=== PATIENT | male | born 1975 | race Asian ===

== ENCOUNTER 2024-11-16 08:53 | Inpatient (IN) ==
--- NOTE | 2024-11-16 09:27 | Emergency Department Note ---
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 The patient had testing done because he is not been feeling well. The patient denies having any abdominal pain nausea or vomiting. The patient denies having any fevers or recent traveling. [place] . He has no history of IV drug abuse. ROS: See above HPI for pertinent positives & negatives. A total of 10 systems reviewed and were otherwise negative. PAST MEDICAL HISTORY: See Below PAST SURGICAL HISTORY: See Below FAMILY HISTORY: See Below SOCIAL HISTORY: See Below HOME MEDICATIONS: See Below ALLERGIES: See Below VITALS: See Below PHYSICAL EXAMINATION: GENERAL: Patient is awake alert in no acute distress patient is resting comfortably and showing no signs of anxiety EYES: The conjunctivae are icteric. The pupils are round and reactive. EARS, NOSE, MOUTH AND THROAT: The nose is without any evidence of any deformity. NECK: The neck is nontender and supple. RESPIRATORY: Normal respiratory effort is noted there is no evidence of wheezing rhonchi or rales CARDIOVASCULAR: Regular rate and rhythm noted there no murmurs rubs or gallops normal S1 normal S2. GASTROINTESTINAL: The abdomen is soft. Abdomen is nontender. MUSCULOSKELETAL/EXTREMITIES: There is no evidence of gross deformity full range of motion is noted in the hips and shoulders. SKIN: There is no obvious evidence of any rash. There are no petechiae, pallor or cyanosis noted. NEUROLOGIC: Patient is awake alert and oriented x3 strength is symmetric patellar reflexes are 2+ bilaterally MEDICAL DECISION MAKING: The patient is a 49-year-old male who presented to the emergency department from the [facility]. The patient was noted to be jaundiced and had laboratory studies done. He was found to have acute hepatitis but his LFTs were very elevated. He also had an elevated bilirubin. There is concerned that he might start to go into worsening liver failure. The patient was sent to the emergency department for further evaluation. I discussed the patient's laboratory and radiographic studies with him. I discussed his condition with the on-call [facility] hospitalist as well as the on-call GI team. At this time they recommend inpatient management to determine further treatment. Triage Nursing notes reviewed. Prior medical records reviewed Vital Signs: reviewed and remarkable for no significant abnormalities Differential diagnosis: Etiologies such as appendicitis, diverticulitis, obstruction, inflammatory bowel disease, renal colic, PUD, biliary pathology, pancreatitis, mesenteric ischemia, aortic pathology, infections, genitourinary, UTI, perforated viscus, as well as others were entertained. ER treatment provided: See below Diagnostics interpreted by me: ECG: EKG was obtained in the emergency department. My interpretation is sinus bradycardia at 51 bpm. There is no ectopy. There is no acute ST segment abnormalities noted. QTc was 403 ms. Cardiac Monitoring: An order was placed for continuous cardiac monitoring. The monitor shows a rate of 53 bpm with sinus rhythm. Laboratory studies: As stated above and show below. Imaging studies: See below. Radiographic imaging was reviewed by myself Consultation(s): I discussed this case with Dr. Tong who is on for gastroenterology. I discussed this case with Dr. [facility] Past Med/Surg History Problem List (Updated 11/16/24 @ 14:52 by Roly Ceron DO) Hyperbilirubinemia (Acute) Abnormal LFTs (Acute) Hepatitis B (Acute) Acute liver disease Social History Smoking Status: Never smoker Hx Alcohol Use: No Hx Substance Use: No Preferred Language: [employer] Required: No Beliefs That Will Affect Care: None Current Living Situation: Other Other Information That Helps Us Care for You: No Feels Safe at Home: Yes Safety Concerns: Feels Safe At This Time Assistive Devices: None Allergies Allergies Allergy/AdvReac Type Severity Reaction Status Date / Time No Known Allergies Allergy Unverified 11/16/24 12:37 Results & Data (ED) Vital Signs Vital Signs - 24 hr 11/16/24 09:02 11/16/24 09:16 11/16/24 09:26 Temperature 36.7 C Temperature Source Temporal Artery Scan Pulse Rate 54 L 63 Pulse Rate [Apical] 61 Pulse Rhythm Respiratory Rate 18 18 Respiratory Effort / Characteristics Non-Labored Spontaneous Non-Labored Spontaneous Respiratory Depth Normal Normal Respiratory Pattern Regular Regular Blood Pressure 108/68 Blood Pressure [Right Arm] 116/72 Blood Pressure Mean 81 Blood Pressure Mean [Right Arm] 86 Blood Pressure Position [Right Arm] Semi-fowlers Pulse Oximetry 97 97 Oxygen Delivery Method Room Air Room Air Sepsis Recent Fever Within 48 Hours No Sepsis New/Unexplained Change in Mental Status N/A Sepsis Action Taken by Nursing No Action Required 11/16/24 09:30 11/16/24 10:29 Temperature Temperature Source Pulse Rate 57 L Pulse Rate [Apical] 53 L Pulse Rhythm Regular Respiratory Rate 18 17 Respiratory Effort / Characteristics Non-Labored Spontaneous Respiratory Depth Normal Respiratory Pattern Blood Pressure Blood Pressure [Right Arm] 115/84 Blood Pressure Mean Blood Pressure Mean [Right Arm] 94 Blood Pressure Position [Right Arm] Lying Pulse Oximetry 98 98 Oxygen Delivery Method Room Air Room Air Sepsis Recent Fever Within 48 Hours Sepsis New/Unexplained Change in Mental Status Sepsis Action Taken by Correction Medications Current Medication List: was personally reviewed by me Laboratory Data Attestation: I reviewed the patient's lab results. 11/16/24 08:59 11/16/24 08:59 Lab Results 11/16/24 11/16/24 11/16/24 Range/Units 08:59 09:01 09:17 WBC 3.30 L (4.8-10.8) K/ul RBC 4.40 L (4.70-6.10) M/uL Hgb 13.4 L (14.0-18.0) g/dl Hct 41.5 L (42.0-52.0) % MCV 94.3 (80.0-100.0) fL MCH 30.5 (25.0-34.0) pg MCHC 32.3 (32.0-36.0) g/dL RDW Std Deviation 56.0 H (36.4-46.3) fL RDW Coeff of Misha 16.0 H (11.5-14.5) % Plt Count 122 L (130-400) K/uL MPV 10.7 (9.4-12.4) fL Immature Gran % (Auto) 0.3 % Neut % (Auto) 52.7 % Lymph % (Auto) 35.8 % Otero % (Auto) 9.4 % Eos % (Auto) 1.2 % Baso % (Auto) 0.6 % Neut # (Auto) 1.74 (1.40-6.50) K/uL Lymph # (Auto) 1.18 L (1.20-3.40) K/uL Otero # (Auto) 0.31 (0.11-0.59) K/uL Eos # (Auto) 0.04 (0.00-0.50) K/uL Baso # (Auto) 0.02 (0.00-0.20) K/uL Immature Gran # (Auto) 0.01 (0.01-0.20) K/uL PT 11.6 (9.0-12.0) Seconds INR 1.1 (0.9-1.1) APTT 29 (21-31) Seconds PTT Ratio 1.1 Sodium 138 (136-145) mmol/L Potassium 3.8 (3.5-5.1) mmol/L Chloride 104 (98-107) mmol/L Carbon Dioxide 29 (21-32) mmol/L Anion Gap 5 (3-11) BUN 12 (6-23) mg/dl Creatinine 0.88 (0.6-1.4) mg/dl Est Cr Clr Drug Dosing 106.0 ml/min eGFR 106.07 BUN/Creatinine Ratio 13.6 (10-20) Glucose 131 H (70-99(Fasting)) mg/dl Calcium 9.2 (8.6-10.3) mg/dl Total Bilirubin 3.5 H (0.2-1.0) mg/dl Direct Bilirubin 1.8 H (0-0.2) mg/dl AST 497 H (13-39) U/L ALT 1103 H (7-52) U/L Alkaline Phosphatase 86 (34-104) U/L Troponin I High Sens 2.7 (0-20) pg/ml Total Protein 7.2 (6.0-8.3) gm/dl Albumin 4.1 (3.4-5.0) gm/dl Globulin 3.1 (2.5-4.0) gm/dl Albumin/Globulin Ratio 1.3 (0.9-2) Lipase 16 (11-82) U/L Urine Color Urine Appearance (Clear) Urine pH (4.5-7.5) Ur Specific Longs (1.000-1.030) Urine Protein (Negative) Urine Glucose (UA) (Negative) Urine Ketones (Negative) Urine Blood (Negative) Urine Nitrite (Negative) Urine Bilirubin (Negative) Urine Urobilinogen (Negative) Ur Leukocyte Esterase (Negative) Urine Comment Acetaminophen < 3 L (10-30) ug/ml EBV Capsid Ag IgG Ab Positive EBV Caps Ag IgG Sig Str 119.0 (< 18.0) U/mL EBV Capsid Ag IgM Ab Negative EBV Caps Ag IgM Sig Str < 10.0 (< 36.0) U/mL EBV Early Antigen IgG Negative (Negative) EBV EA Signal Strength < 5.0 (< 9.0) U/mL EBV Nuclear Antigen Ab Positive EBV Nucl Ag IgG Sig Str 119.0 (< 18.0) U/mL EBV Interpretation See Comment Hep Bs Antigen Prelim Positive A (Negative) Hep Bs Antibody Non-Immune Hep Bs Antibody, Quant < 3.00 (>or=10mIU/mL Immune) mIU/mL Hepatitis C Antibody Negative (Negative) 11/16/24 Range/Units 10:27 WBC (4.8-10.8) K/ul RBC (4.70-6.10) M/uL Hgb (14.0-18.0) g/dl Hct (42.0-52.0) % MCV (80.0-100.0) fL MCH (25.0-34.0) pg MCHC (32.0-36.0) g/dL RDW Std Deviation (36.4-46.3) fL RDW Coeff of Misha (11.5-14.5) % Plt Count (130-400) K/uL MPV (9.4-12.4) fL Immature Gran % (Auto) % Neut % (Auto) % Lymph % (Auto) % Otero % (Auto) % Eos % (Auto) % Baso % (Auto) % Neut # (Auto) (1.40-6.50) K/uL Lymph # (Auto) (1.20-3.40) K/uL Otero # (Auto) (0.11-0.59) K/uL Eos # (Auto) (0.00-0.50) K/uL Baso # (Auto) (0.00-0.20) K/uL Immature Gran # (Auto) (0.01-0.20) K/uL PT (9.0-12.0) Seconds INR (0.9-1.1) APTT (21-31) Seconds PTT Ratio Sodium (136-145) mmol/L Potassium (3.5-5.1) mmol/L Chloride (98-107) mmol/L Carbon Dioxide (21-32) mmol/L Anion Gap (3-11) BUN (6-23) mg/dl Creatinine (0.6-1.4) mg/dl Est Cr Clr Drug Dosing ml/min eGFR BUN/Creatinine Ratio (10-20) Glucose (70-99(Fasting)) mg/dl Calcium (8.6-10.3) mg/dl Total Bilirubin (0.2-1.0) mg/dl Direct Bilirubin (0-0.2) mg/dl AST (13-39) U/L ALT (7-52) U/L Alkaline Phosphatase (34-104) U/L Troponin I High Sens (0-20) pg/ml Total Protein (6.0-8.3) gm/dl Albumin (3.4-5.0) gm/dl Globulin (2.5-4.0) gm/dl Albumin/Globulin Ratio (0.9-2) Lipase (11-82) U/L Urine Color Dark Yellow Urine Appearance Clear (Clear) Urine pH 6.5 (4.5-7.5) Ur Specific Longs 1.011 (1.000-1.030) Urine Protein Negative (Negative) Urine Glucose (UA) Negative (Negative) Urine Ketones Negative (Negative) Urine Blood Negative (Negative) Urine Nitrite Negative (Negative) Urine Bilirubin 1+ H (Negative) Urine Urobilinogen Negative (Negative) Ur Leukocyte Esterase Negative (Negative) Urine Comment Acetaminophen (10-30) ug/ml EBV Capsid Ag IgG Ab EBV Caps Ag IgG Sig Str (< 18.0) U/mL EBV Capsid Ag IgM Ab EBV Caps Ag IgM Sig Str (< 36.0) U/mL EBV Early Antigen IgG (Negative) EBV EA Signal Strength (< 9.0) U/mL EBV Nuclear Antigen Ab EBV Nucl Ag IgG Sig Str (< 18.0) U/mL EBV Interpretation Hep Bs Antigen (Negative) Hep Bs Antibody Hep Bs Antibody, Quant (>or=10mIU/mL Immune) mIU/mL Hepatitis C Antibody (Negative) Imaging Data Attestation: I personally reviewed and interpreted this imaging study as follows: My Impression: Ultrasound of the right upper quadrant was obtained. My interpretation is no free fluid noted, final report below. Radiologist's Impression: Abdomen Ultrasound 11/16/24 08:59 ULTRASOUND RIGHT UPPER QUADRANT ABDOMEN CLINICAL HISTORY: Hepatitis B positive. COMPARISON STUDY: No priors TECHNIQUE: Real-time, grayscale, and color flow sonography of the right upper quadrant of the abdomen was performed. Images are reviewed in the transverse and longitudinal planes. FINDINGS: Liver: The liver is normal in size and echotexture. There is no intrahepatic biliary ductal dilatation. The main portal vein is patent. There is no sonographic evidence of hepatic mass lesion. Gallbladder: The gallbladder is partially contracted and normal as imaged. No gallstones are identified. There is no gallbladder wall thickening or pericholecystic fluid. A sonographic Novoa's sign is reportedly absent. The common bile duct measures up to 0.3 cm in diameter. Pancreas: Visualized portions of the pancreatic head and body are normal in appearance. Right kidney: Survey images of the right kidney demonstrate normal size and echotexture. There is no hydronephrosis. Ascites: None. IMPRESSION: 1. Normal sonographic appearance of the liver. 2. No gallstones are seen. ACT 112: Negative or not required by law. Electronically signed by: James Kennedy M.D. 11/16/2024 12:56 PM Chest X-Ray 11/16/24 08:59 SINGLE VIEW CHEST CLINICAL HISTORY: Generalized abdominal pain. FINDINGS: An AP, portable, upright chest radiograph is obtained. No prior studies are available for comparison at the time of dictation. The cardiomediastinal silhouette is unremarkable. The lungs and pleural spaces are clear. No pneumothorax is seen. The bony thorax is grossly intact. IMPRESSION: No active disease in the chest. ACT 112: Negative or not required by law. Electronically signed by: James Kennedy M.D. 11/16/2024 9:31 AM Discharge Plan Visit Data Chief Complaint: Referred by Doctor Stated Complaint: ABNORMAL BLOOD WORK ED Provider: Roly Ceron Discharge Problem: Hepatitis B, Abnormal LFTs, Hyperbilirubinemia Patient Disposition: Admitted As Inpatient Condition: Fair Discharge Instructions Interventions: ED Discharge Assessment Last Done: 11/16/24 11:52
--- NOTE | 2024-11-16 09:32 | XRay Report ---
SINGLE VIEW CHEST CLINICAL HISTORY: Generalized abdominal pain. FINDINGS: An AP, portable, upright chest radiograph is obtained. No prior studies are available for c omparison at the time of dictation. The cardiomediastinal silhouette is unremarkable. The lungs and p leural spaces are clear. No pneumothorax is seen. The bony thorax is grossly intact. IMPRESSION: No active disease in the chest. ACT 112: Negative or not required by law. Electronically signed by: James Kennedy M.D. 11/16/2024 9:31 AM
[2024-11-16 09:45] LABS: Hematocrit (blood only) 41.5 % (42.0-52.0); Hemoglobin 13.4 g/dl (14.0-18.0); Immature Granulocytes # (auto) 0.01 K/uL (0.01-0.20); Immature Granulocytes % (auto) 0.3 %; Mean Corpuscular Hemoglobin 30.5 pg (25.0-34.0); Mean Corpuscular Volume 94.3 fL (80.0-100.0); Platelet Count 122 K/uL (130-400); RDW Standard Deviation 56.0 fL (36.4-46.3); Red Blood Count 4.40 M/uL (4.70-6.10); White Blood Count 3.30 K/ul (4.8-10.8)
[2024-11-16 10:01] LABS: Anion Gap 5.0 (3-11); Blood Urea Nitrogen 12.0 mg/dl (6-23); Calcium 9.2 mg/dl (8.6-10.3); Carbon Dioxide 29.0 mmol/L (21-32); Chloride 104.0 mmol/L (98-107); Creatinine Clr Calc Pharmacy 106.0 ml/min; Glucose 131.0 mg/dl (70-99(Fasting)); Potassium 3.8 mmol/L (3.5-5.1); Sodium 138.0 mmol/L (136-145)
[2024-11-16 10:10] LABS: INR 1.1 (0.9-1.1); Partial Thromboplastin Time 29 Seconds (21-31); Prothrombin Time 11.6 Seconds (9.0-12.0)
[2024-11-16 10:22] LABS: Alanine Aminotransferase 1103.0 U/L (7-52); Albumin Globulin Ratio 1.3 (0.9-2); Alkaline Phosphatase 86.0 U/L (34-104); Bilirubin,Total 3.5 mg/dl (0.2-1.0); Globulin 3.1 gm/dl (2.5-4.0); Lipase 16.0 U/L (11-82); Total Protein 7.2 gm/dl (6.0-8.3)
[2024-11-16 10:49] LABS: Appearance Urine Clear (Clear); Glucose Urine UA Negative (Negative)
[2024-11-16 10:56] LABS: Hep C Ab Rflx HepCQuant RNA Negative (Negative)
--- NOTE | 2024-11-16 11:03 | History & Physical Report ---
Date of Service November 16, 2024 Assessment & Plan (1) Acute liver disease: Plan 49 yo male with unknown pmhx who presents from [facility] ([facility]) for abnormal labs 2/2 likely acute hepatitis vs. acute on chronic hepatitis. #Acute vs. Acute on Chronic Liver Disease #Pancytopenia -positive HbsAg, other serologies incoming, does appear to be acute Hepatitis B -negative HbsAb suggestive of no chronic immunity -Hep C negative -pancytopenia suggests potential chronic component to liver disease -other etiologies less likely, differential includes Hepatitis A/E, drug induced liver injury (unlikely given no medications), autoimmune hepatitis (possible), obstructive liver disease (less likely given asymtpomatic), Wilsons disease (possible), less likely tylenol toxicity (given negative), acute Budd Chiari Plan: -GI consult, appreciate recs (order placed) -f/u hepatitis panel -f/u GGT -check autoimmune panel -check hepatitis C viral load, add on hepatitis E labs -check BRONSON, ceruloplasmin, antismooth muscle antibody, copper levels I spent a total of 80 minutes in direct patient care, including [id number] time with the patient and/or family, reviewing medical records, ordering and reviewing diagnostic tests, and coordinating care with other healthcare providers. This time includes: history taking, physical examination, medical decision making, counseling, ECG interpretation, imaging interpretation, lab interpretation, orders, and education, excluding time spent in the performance of separately billed services. History of Present Illness Chief Complaint: -abnormal labs Primary Care Provider: [facility] 49 yo male with unknown pmhx who presents from [facility] ([facility]) for abnormal labs. No medical history or admissions for this patient in medical records. Patient gave permission to discuss case with officers in room, 2 officers in room during conversation. Patient seen and examined at bedside. Patient doing well today. He states he has no symptoms at this time, no nausea, vomiting, diarrhea, SOB, chest pain, RUQ pain. He states he occasionally has had chest pain but not currently. He states he is unsure if his family members had hepatitis B. He states he does not feel any differently than he did prior. Denies IV drug use, no drug use, no alcohol use, no tobacco use, full code. Allergies Allergy/AdvReac Type Severity Reaction Status Date / Time No Known Allergies Allergy Unverified 11/16/24 12:37 Past Med/Surg History Problem List (Updated 11/16/24 @ 12:16 by Virgilio Mg MD) Acute liver disease Social History Smoking Status: Never smoker Preferred Language: Uzbek Review of Systems Review of Systems: -negative unless listed above Physical Exam Physical Exam: Gen: A&O 3 NAD HEENT: NCAT, EOMI, not icteric. External ears normal. No rhinorrhea. Moist mucous membranes. Neck: Supple, full range of motion, no observable masses, No meningeal sign. Lungs: No Respiratory distress. CV: RRR, no edema. Abdomen: Soft, nondistended, No rebound tenderness. MSK: No joint swelling, no redness. Skin: No rashes, petechiae, lesions. Normal color per patient. Neuro: Normal Gait, Grossly intact. Psych: Appropriate for situation. Results & Data Results & Data Vital Signs (Past 12 Hours) Vital Signs Temp Pulse Pulse Resp BP BP Pulse Ox 11/16/24 10:29 53 L 17 115/84 98 11/16/24 09:30 57 L 18 98 11/16/24 09:26 61 18 116/72 97 11/16/24 09:16 63 11/16/24 09:02 36.7 C 54 L 18 108/68 97 O2 Del Method 11/16/24 10:29 Room Air 11/16/24 09:30 Room Air 11/16/24 09:26 Room Air 11/16/24 09:16 11/16/24 09:02 Room Air Laboratory Results -personally reviewed, pancytopenia noted likely consistent with chronic liver disease, elevated bilirubin with equal indirect/direct bilirubin, elevated transaminases with ALT predominance consistent with likely hepatitis etiology, positive Hepatitis B surface antigen, Hp B antibody negative Code Status & VTE Plan Code Status -full code
[2024-11-16 11:23] LABS: EBV Nuclear Antigen IgG Ab Positive; EBV Nuclear Antigen IgG Quant 119.0 U/mL (< 18.0)
[2024-11-16 11:24] LABS: EBV Early Antigen IgG Ab Negative (Negative); EBV Early Antigen IgG Quant < 5.0 U/mL (< 9.0)
[2024-11-16 11:25] LABS: EBV IgM Quant < 10.0 U/mL (< 36.0)
[2024-11-16 11:26] LABS: EBV IgG Quant 119.0 U/mL (< 18.0)
[2024-11-16 11:55] LABS: Hep B Surface Ag with confirm Prelim Positive (Negative)
--- NOTE | 2024-11-16 12:15 | Electrocardiogram Report ---
Test Reason : Blood Pressure : */* mmHG Vent. Rate : 51 BPM Atrial Rate : 51 BPM P-R Int : 246 ms QRS Dur : 92 ms QT Int : 438 ms P-R-T Axes : 18 38 32 degrees QTcB Int : 403 ms Sinus bradycardia with 1st degree A-V block Otherwise normal ECG No previous ECGs available Confirmed by Javi Prince ([id number]) on 11/16/2024 12:14:57 PM Referred By: [facility] Confirmed By: Javi Prince
[2024-11-16] MEDS ORDERED: POLYETHYLENE (MIRALAX) 17 GM PACK PO PRN (12:36)
[2024-11-16] MEDS ORDERED: ONDANSETRON INJ 2 MG/ML 2 ML VIAL IV PRN (12:36)
--- NOTE | 2024-11-16 12:58 | Ultrasound Report ---
ULTRASOUND RIGHT UPPER QUADRANT ABDOMEN CLINICAL HISTORY: Hepatitis B positive. COMPARISON STUDY: No priors TECHNIQUE: Real-time, grayscale, and color flow sonography of the right upper quadrant of the abdomen was performed. Images are reviewed in the transverse and longitudinal planes. FINDINGS: Liver: The liver is normal in size and echotexture. There is no intrahepatic biliary ductal dilatatio n. The main portal vein is patent. There is no sonographic evidence of hepatic mass lesion. Gallbladder: The gallbladder is partially contracted and normal as imaged. No gallstones are identifi ed. There is no gallbladder wall thickening or pericholecystic fluid. A sonographic Novoa's sign is reportedly absent. The common bile duct measures up to 0.3 cm in diameter. Pancreas: Visualized portions of the pancreatic head and body are normal in appearance. Right kidney: Survey images of the right kidney demonstrate normal size and echotexture. There is no hydronephrosis. Ascites: None. IMPRESSION: 1. Normal sonographic appearance of the liver. 2. No gallstones are seen. ACT 112: Negative or not required by law. Electronically signed by: James Kennedy M.D. 11/16/2024 12:56 PM
[2024-11-17 06:15] LABS: Hematocrit (blood only) 42.2 % (42.0-52.0); Hemoglobin 13.7 g/dl (14.0-18.0); Mean Corpuscular Hemoglobin 30.6 pg (25.0-34.0); Mean Corpuscular Volume 94.4 fL (80.0-100.0); Platelet Count 131 K/uL (130-400); RDW Standard Deviation 55.5 fL (36.4-46.3); Red Blood Count 4.47 M/uL (4.70-6.10); White Blood Count 4.09 K/ul (4.8-10.8)
[2024-11-17 06:31] LABS: Anion Gap 6.0 (3-11); Blood Urea Nitrogen 10.0 mg/dl (6-23); Calcium 9.3 mg/dl (8.6-10.3); Carbon Dioxide 28.0 mmol/L (21-32); Chloride 104.0 mmol/L (98-107); Creatinine Clr Calc Pharmacy 118.1 ml/min; Glucose 89.0 mg/dl (70-99(Fasting)); Potassium 4.4 mmol/L (3.5-5.1); Sodium 138.0 mmol/L (136-145)
[2024-11-17 06:48] LABS: INR 1.1 (0.9-1.1); Prothrombin Time 11.4 Seconds (9.0-12.0)
[2024-11-17 07:17] LABS: Alanine Aminotransferase 1003.0 U/L (7-52); Albumin Globulin Ratio 1.3 (0.9-2); Alkaline Phosphatase 81.0 U/L (34-104); Bilirubin,Total 3.6 mg/dl (0.2-1.0); Globulin 3.1 gm/dl (2.5-4.0); Magnesium 2.2 mg/dl (1.7-2.4); Total Protein 7.2 gm/dl (6.0-8.3)
--- NOTE | 2024-11-17 07:58 | Gastrointestinal Consultation ---
Date of Consultation November 17, 2024 Assessment & Plan (1) Acute hepatitis: Clinical and biochemical picture consistent with acute hepatitis. Differential includes reactivation of chronic hepatitis B, acute superinfection with hepatitis D. Serologies for hepatitis A IgM are pending which also needs to be considered. Await further hep B serologies and hep B serologies. Treatment is supportive for now. Liver enzymes are starting to normalize. Can advance diet to regular food if tolerated. Unlikely drug related because of lack of ingestion of medications recently. No signs of hepatic decompensation. History of Present Illness Reason for Consultation: Hepatitis Attending Physician: Virgilio Mg MD History of Present Illness [facility]. Routine lab work revealed significantly abnormal liver enzymes. Patient has had general malaise recently. Has had no significant GI symptoms. No abdominal pain no nausea no vomiting no dark urine no jaundice no fever no chills. He denies any prior history of acute or chronic liver disease. No family history of liver disease. Lab data show a positive hepatitis B surface antigen, negative hepatitis B E antigen negative and hepatitis B E antibody positive. Other serologies still pending. Allergies Allergy/AdvReac Type Severity Reaction Status Date / Time No Known Allergies Allergy Unverified 11/16/24 12:37 Patient History Social History Smoking Status: Never smoker Hx Alcohol Use: No Hx Substance Use: No Preferred Language: Turkish Reference Data Expert Required: No Beliefs That Will Affect Care: None Current Living Situation: Other Other Information That Helps Us Care for You: No Feels Safe at Home: Yes Safety Concerns: Feels Safe At This Time Assistive Devices: None Review of Systems Review of Systems: No fever No chills No SOB No CP No Abd pain Physical Exam Physical Exam: Eyes; mild icterus HENT No masses Chest clear to A Cor S1, S2 physiologic Abd: softer nontender no masses Ext no edema Results & Data Vital Signs (Past 12 Hours) Vital Signs Temp Pulse Resp BP Pulse Ox O2 Del Method 11/17/24 07:49 36.7 C 59 L 16 110/67 95 Room Air 11/16/24 23:05 36.6 C 47 L 16 103/64 97 Room Air Laboratory Results Laboratory Results - last 48 hr 11/16/24 11/16/24 11/16/24 08:59 09:01 09:17 WBC 3.30 L RBC 4.40 L Hgb 13.4 L Hct 41.5 L MCV 94.3 MCH 30.5 MCHC 32.3 RDW Std Deviation 56.0 H RDW Coeff of Misha 16.0 H Plt Count 122 L MPV 10.7 Immature Gran % (Auto) 0.3 Neut % (Auto) 52.7 Lymph % (Auto) 35.8 [place] % (Auto) 9.4 Eos % (Auto) 1.2 Baso % (Auto) 0.6 Neut # (Auto) 1.74 Lymph # (Auto) 1.18 L [place] # (Auto) 0.31 Eos # (Auto) 0.04 Baso # (Auto) 0.02 Immature Gran # (Auto) 0.01 PT 11.6 INR 1.1 APTT 29 PTT Ratio 1.1 Sodium 138 Potassium 3.8 Chloride 104 Carbon Dioxide 29 Anion Gap 5 BUN 12 Creatinine 0.88 Est Cr Clr Drug Dosing 106.0 eGFR 106.07 BUN/Creatinine Ratio 13.6 Glucose 131 H Calcium 9.2 Phosphorus Magnesium Total Bilirubin 3.5 H Direct Bilirubin 1.8 H AST 497 H ALT 1103 H Alkaline Phosphatase 86 Troponin I High Sens 2.7 Total Protein 7.2 Albumin 4.1 Globulin 3.1 Albumin/Globulin Ratio 1.3 Lipase 16 Urine Color Urine Appearance Urine pH Ur Specific [place] Urine Protein Urine Glucose (UA) Urine Ketones Urine Blood Urine Nitrite Urine Bilirubin Urine Urobilinogen Ur Leukocyte Esterase Urine Comment Nasal Screen MRSA (PCR) Acetaminophen < 3 L EBV Capsid Ag IgG Ab Positive EBV Caps Ag IgG Sig Str 119.0 EBV Capsid Ag IgM Ab Negative EBV Caps Ag IgM Sig Str < 10.0 EBV Early Antigen IgG Negative EBV EA Signal Strength < 5.0 EBV Nuclear Antigen Ab Positive EBV Nucl Ag IgG Sig Str 119.0 EBV Interpretation See Comment Hep Bs Antigen Prelim Positive A Hep Bs Antibody Non-Immune Hep Bs Antibody, Quant < 3.00 Hepatitis C Antibody Negative 11/16/24 11/16/24 11/17/24 10:27 13:15 05:38 WBC 4.09 L RBC 4.47 L Hgb 13.7 L Hct 42.2 MCV 94.4 MCH 30.6 MCHC 32.5 RDW Std Deviation 55.5 H RDW Coeff of Misha 15.9 H Plt Count 131 MPV 10.9 Immature Gran % (Auto) Neut % (Auto) Lymph % (Auto) [place] % (Auto) Eos % (Auto) Baso % (Auto) Neut # (Auto) Lymph # (Auto) [place] # (Auto) Eos # (Auto) Baso # (Auto) Immature Gran # (Auto) PT 11.4 INR 1.1 APTT PTT Ratio Sodium 138 Potassium 4.4 Chloride 104 Carbon Dioxide 28 Anion Gap 6 BUN 10 Creatinine 0.79 Est Cr Clr Drug Dosing 118.1 eGFR 109.58 BUN/Creatinine Ratio 12.7 Glucose 89 Calcium 9.3 Phosphorus 4.2 Magnesium 2.2 Total Bilirubin 3.6 H Direct Bilirubin AST 427 H ALT 1003 H Alkaline Phosphatase 81 Troponin I High Sens Total Protein 7.2 Albumin 4.1 Globulin 3.1 Albumin/Globulin Ratio 1.3 Lipase Urine Color Dark Yellow Urine Appearance Clear Urine pH 6.5 Ur Specific [place] 1.011 Urine Protein Negative Urine Glucose (UA) Negative Urine Ketones Negative Urine Blood Negative Urine Nitrite Negative Urine Bilirubin 1+ H Urine Urobilinogen Negative Ur Leukocyte Esterase Negative Urine Comment Nasal Screen MRSA (PCR) Negative Acetaminophen EBV Capsid Ag IgG Ab EBV Caps Ag IgG Sig Str EBV Capsid Ag IgM Ab EBV Caps Ag IgM Sig Str EBV Early Antigen IgG EBV EA Signal Strength EBV Nuclear Antigen Ab EBV Nucl Ag IgG Sig Str EBV Interpretation Hep Bs Antigen Hep Bs Antibody Hep Bs Antibody, Quant Hepatitis C Antibody Diagnostic Findings Abdomen Ultrasound 11/16/24 08:59 ULTRASOUND RIGHT UPPER QUADRANT ABDOMEN CLINICAL HISTORY: Hepatitis B positive. COMPARISON STUDY: No priors TECHNIQUE: Real-time, grayscale, and color flow sonography of the right upper quadrant of the abdomen was performed. Images are reviewed in the transverse and longitudinal planes. FINDINGS: Liver: The liver is normal in size and echotexture. There is no intrahepatic biliary ductal dilatation. The main portal vein is patent. There is no sonographic evidence of hepatic mass lesion. Gallbladder: The gallbladder is partially contracted and normal as imaged. No gallstones are identified. There is no gallbladder wall thickening or pericholecystic fluid. A sonographic Novoa's sign is reportedly absent. The common bile duct measures up to 0.3 cm in diameter. Pancreas: Visualized portions of the pancreatic head and body are normal in appearance. Right kidney: Survey images of the right kidney demonstrate normal size and echotexture. There is no hydronephrosis. Ascites: None. IMPRESSION: 1. Normal sonographic appearance of the liver. 2. No gallstones are seen. ACT 112: Negative or not required by law. Electronically signed by: James Kennedy M.D. 11/16/2024 12:56 PM Chest X-Ray 11/16/24 08:59 SINGLE VIEW CHEST CLINICAL HISTORY: Generalized abdominal pain. FINDINGS: An AP, portable, upright chest radiograph is obtained. No prior studies are available for comparison at the time of dictation. The cardiomediastinal silhouette is unremarkable. The lungs and pleural spaces are clear. No pneumothorax is seen. The bony thorax is grossly intact. IMPRESSION: No active disease in the chest. ACT 112: Negative or not required by law. Electronically signed by: James Kennedy M.D. 11/16/2024 9:31 AM PG Care Time/CCT Total # of Minutes Spent Total Time Spent with Patient: Total time spent is greater than 50% in coordination of care (as documented) at patient's floor/unit and/or counseling patient: Coding Level of Care Code 65036 INT INP/OBS CARE 2MIN Diagnoses Acute hepatitis B17.9
--- NOTE | 2024-11-17 10:07 | Hospitalist Progress Note ---
Date of Service November 17, 2024 Assessment & Plan (1) Acute liver disease: Plan 49 yo male with unknown pmhx who presents from [facility] for abnormal labs 2/2 likely acute hepatitis vs. acute on chronic hepatitis. #Acute vs. Acute on Chronic Liver Disease #Pancytopenia -positive HbsAg, other serologies incoming, does appear to be acute Hepatitis B -negative HbsAb suggestive of no chronic immunity -Hep C negative -other etiologies less likely, differential includes Hepatitis A/E, drug induced liver injury (unlikely given no medications), autoimmune hepatitis (possible), obstructive liver disease (less likely given asymtpomatic), Wilsons disease (possible), less likely tylenol toxicity (given negative), acute Budd Chiari -LFTs improving today Plan: -GI consult, appreciate recs -f/u hepatitis panel, autoimmune panel -f/u hepatitis C viral load, add on hepatitis E labs -f/u BRONSON, ceruloplasmin, antismooth muscle antibody, copper levels I spent a total of 40 minutes in direct patient care, including [id number] time with the patient and/or family, reviewing medical records, ordering and reviewing diagnostic tests, and coordinating care with other healthcare providers. This time includes: history taking, physical examination, medical decision making, counseling, ECG interpretation, imaging interpretation, lab interpretation, orders, and education, excluding time spent in the performance of separately billed services. Admission and Anticipated Discharge Date Admission Date: November 16, 2024 Subjective Patient seen and examined at bedside. Patient doing ok today. States he is hungry and wants some juice. Denies any abdominal pain, nausea, vomiting, diarrhea, other symptoms. Review of Systems Review of Systems: CONSTITUTIONAL: Patient denies fevers, chills, sweats and weight changes. EYES: Patient denies any visual symptoms. EARS, NOSE, AND THROAT: No difficulties with hearing. No symptoms of rhinitis or sore throat. CARDIOVASCULAR: Patient denies chest pains, palpitations, orthopnea and paroxysmal nocturnal dyspnea. RESPIRATORY: No dyspnea on exertion, no wheezing or cough. GI: No nausea, vomiting, diarrhea, constipation, abdominal pain, hematochezia or melena. mild jaundice : No urinary hesitancy or dribbling. No nocturia or urinary frequency. No abnormal urethral discharge. MUSCULOSKELETAL: No myalgias or arthralgias. NEUROLOGIC: No chronic headaches, no seizures. Patient denies numbness, tingling or weakness. PSYCHIATRIC: Patient denies problems with mood disturbance. No problems with anxiety. ENDOCRINE: No excessive urination or excessive thirst. Physical Exam Physical Exam: Gen: A&O 3 NAD HEENT: NCAT, EOMI, mild jaundice. External ears normal. No rhinorrhea. Moist mucous membranes. Neck: Supple, full range of motion, no observable masses, No meningeal sign. Lungs: No Respiratory distress. CV: RRR, no edema. Abdomen: Soft, nondistended, No rebound tenderness. MSK: No joint swelling, no redness. Skin: No rashes, petechiae, lesions. Normal color per patient. Neuro: Normal Gait, Grossly intact. Psych: Appropriate for situation. Results & Data Results & Data Vital Signs (Past 12 Hours) Vital Signs Temp Pulse Resp BP Pulse Ox O2 Del Method 11/17/24 07:49 36.7 C 59 L 16 110/67 95 Room Air 11/16/24 23:05 36.6 C 47 L 16 103/64 97 Room Air Laboratory Results -personally reviewed, pancytopenia imrpoving, INR 1.1 not indicative of acute liver failure, mildly improving transaminases
[2024-11-18 07:23] LABS: Hematocrit (blood only) 42.5 % (42.0-52.0); Hemoglobin 13.8 g/dl (14.0-18.0); Mean Corpuscular Hemoglobin 30.6 pg (25.0-34.0); Mean Corpuscular Volume 94.2 fL (80.0-100.0); Platelet Count 125 K/uL (130-400); RDW Standard Deviation 54.5 fL (36.4-46.3); Red Blood Count 4.51 M/uL (4.70-6.10); White Blood Count 4.44 K/ul (4.8-10.8)
[2024-11-18 07:49] LABS: INR 1.1 (0.9-1.1); Prothrombin Time 11.4 Seconds (9.0-12.0)
[2024-11-18 08:06] LABS: Anion Gap 4.0 (3-11); Blood Urea Nitrogen 12.0 mg/dl (6-23); Calcium 9.2 mg/dl (8.6-10.3); Carbon Dioxide 31.0 mmol/L (21-32); Chloride 102.0 mmol/L (98-107); Creatinine Clr Calc Pharmacy 94.2 ml/min; Glucose 96.0 mg/dl (70-99(Fasting)); Potassium 4.7 mmol/L (3.5-5.1); Sodium 137.0 mmol/L (136-145)
[2024-11-18 08:42] LABS: Alanine Aminotransferase 823.0 U/L (7-52); Albumin Globulin Ratio 1.2 (0.9-2); Alkaline Phosphatase 75.0 U/L (34-104); Bilirubin,Total 3.3 mg/dl (0.2-1.0); Globulin 3.2 gm/dl (2.5-4.0); Total Protein 7.1 gm/dl (6.0-8.3)
--- NOTE | 2024-11-18 10:00 | Gastroenterology Progress Note ---
Date of Service November 18, 2024 Assessment & Plan (1) Acute hepatitis: Plan: -await the pending hepatitis labs, including Hep A, B, D, and E. - LFTs are trending downwards. Admission and Anticipated Discharge Date Admission Date: November 16, 2024 Supervising Physician Co-Signing Physician Notes I personally saw and examined the patient. I have reviewed the chart and agree with the documentation provided by the [employer]ER including discussion about the assessment, treatment and plan. Briefly, 49-year-old Italian male with no prior history of liver disease who presents with acute hepatitis. There is no evidence of encephalopathy present. He does not remember if his parents ever were diagnosed with hepatitis. I do suspect this is horizontal transmission greater than vertical transmission and reactivation of hepatitis B. I would like him to stay another day until we get his hep serologies back as given his r ising LFTs he is a good candidate for antiretroviral therapy. Will consider Entecavir versus Vemlidy for treatment of acute on chronic hep B. Subjective Patient with an unknown past medical history who presents from [facility] ([facility]) for abnormal labs secondary to likely acute hepatitis vs. acute on chronic hepatitis. other than his labs being off, he offers no gi complaints. no known history of hepatitis. He otherwise feels well from a GI standpoint. The remainder of the GI ROS were unremarkable. 11/18/24 AST 322, ALT 823, T bili 3.3. rest of LFTs are unremarkable. 11/16/24 hep C negative. Hep Bs antigen prelim positive. US 11/16 Normal sonographic appearance of the liver. No gallstones are seen. Review of Systems Review of Systems: All systems reviewed & are unremarkable except as noted in HPI & below Physical Exam Constitutional: WD/WN, vitals as above Respiratory: normal respiratory effort, lungs clear to auscultation Cardiovascular: Rate/Rhythm: regular rate and regular rhythm Gastrointestinal (Abdomen): normal bowel sounds, soft, nontender, no hepatosplenomegaly Psychiatric: Orientation: alert and oriented x 3 Results & Data Results & Data Vital Signs (Past 12 Hours) Vital Signs Temp Pulse Resp BP Pulse Ox O2 Del Method 11/18/24 08:03 97.5 F L 55 L 18 132/75 99 Room Air 11/17/24 23:00 97.7 F 65 18 98/59 L 98 Room Air Coding Level of Care Code 51022 SUB INP/OBS CARE 05/11MIN Diagnoses Acute hepatitis B17.9
--- NOTE | 2024-11-18 12:40 | Hospitalist Progress Note ---
Date of Service November 18, 2024 Assessment & Plan (1) Acute liver disease: Plan 49 yo male with unknown pmhx who presents from [facility] ([facility]) for abnormal labs 2/2 likely acute hepatitis vs. acute on chronic hepatitis. #Acute vs. Acute on Chronic Liver Disease #Pancytopenia -positive HbsAg, other serologies incoming, does appear to be acute Hepatitis B -negative HbsAb suggestive of no chronic immunity -Hep C negative -other etiologies less likely, differential includes Hepatitis A/E, drug induced liver injury (unlikely given no medications), autoimmune hepatitis (possible), obstructive liver disease (less likely given asymtpomatic), Wilsons disease (possible), less likely Tylenol toxicity (given negative), acute Budd Chiari -LFTs stable, discussed case with GI, patient not medically ready for discharge until serology has come back given extent of LFT elevation Plan: -GI consult, appreciate recs, discussed personally with GI, keep patient until serologies return -f/u hepatitis panel, autoimmune panel -f/u hepatitis C viral load, hepatitis E labs -f/u BRONSON, ceruloplasmin, antismooth muscle antibody, copper levels I spent a total of 45 minutes in direct patient care, including [id number] time with the patient and/or family, reviewing medical records, ordering and reviewing diagnostic tests, and coordinating care with other healthcare providers. This time includes: history taking, physical examination, medical decision making, counseling, ECG interpretation, imaging interpretation, lab interpretation, orders, and education, excluding time spent in the performance of separately billed services. Admission and Anticipated Discharge Date Admission Date: November 16, 2024 Subjective Patient seen and examined at bedside. Patient doing well today. States he would like to leave if possible. Feels same as yesterday. Review of Systems Review of Systems: CONSTITUTIONAL: Patient denies fevers, chills, sweats and weight changes. EYES: Patient denies any visual symptoms. EARS, NOSE, AND THROAT: No difficulties with hearing. No symptoms of rhinitis or sore throat. CARDIOVASCULAR: Patient denies chest pains, palpitations, orthopnea and p aroxysmal nocturnal dyspnea. RESPIRATORY: No dyspnea on exertion, no wheezing or cough. GI: No nausea, vomiting, diarrhea, constipation, abdominal pain, hematochezia or melena. mild jaundice : No urinary hesitancy or dribbling. No nocturia or urinary frequency. No abnormal urethral discharge. MUSCULOSKELETAL: No myalgias or arthralgias. NEUROLOGIC: No chronic headaches, no seizures. Patient denies numbness, tingling or weakness. PSYCHIATRIC: Patient denies problems with mood disturbance. No problems with anxiety. ENDOCRINE: No excessive urination or excessive thirst. Physical Exam Physical Exam: Gen: A&O 3 NAD HEENT: NCAT, EOMI, mild jaundice. External ears normal. No rhinorrhea. Moist mucous membranes. Neck: Supple, full range of motion, no observable masses, No meningeal sign. Lungs: No Respiratory distress. CV: RRR, no edema. Abdomen: Soft, nondistended, No rebound tenderness. MSK: No joint swelling, no redness. Skin: No rashes, petechiae, lesions. Normal color per patient. Neuro: Normal Gait, Grossly intact. Psych: Appropriate for situation. Results & Data Results & Data Vital Signs (Past 12 Hours) Vital Signs Temp Pulse Resp BP Pulse Ox O2 Del Method 11/18/24 08:03 36.4 C L 55 L 18 132/75 99 Room Air Laboratory Results -personally reviewed, relatively stable/marginally improved LFTs, pancytopenia stable, INR at baseline
--- NOTE | 2024-11-19 13:37 | Hospitalist Progress Note ---
Date of Service November 19, 2024 Assessment & Plan (1) Acute liver disease: Plan 49 yo male with unknown pmhx who presents from [facility] ([facility]) for abnormal labs 2/2 likely acute hepatitis vs. acute on chronic hepatitis. #Acute vs. Acute on Chronic Liver Disease #Pancytopenia -positive HbsAg, other serologies incoming, does appear to be acute Hepatitis B -negative HbsAb suggestive of no chronic immunity -Hep C negative -other etiologies less likely, differential includes Hepatitis A/E, drug induced liver injury (unlikely given no medications), autoimmune hepatitis (possible), obstructive liver disease (less likely given asymtpomatic), Wilsons disease (possible), less likely Tylenol toxicity (given negative), acute Budd Chiari -LFTs stable, discussed case with GI, patient not medically ready for discharge until serology has come back given extent of LFT elevation Plan: -GI consult, appreciate recs, discussed personally with GI, keep patient until serologies return -f/u hepatitis panel, autoimmune panel -f/u hepatitis C viral load, hepatitis E labs -f/u BRONSON, ceruloplasmin, antismooth muscle antibody, copper levels I spent a total of 35 minutes in direct patient care, including [id number] time with the patient and/or family, reviewing medical records, ordering and reviewing diagnostic tests, and coordinating care with other healthcare providers. This time includes: history taking, physical examination, medical decision making, counseling, ECG interpretation, imaging interpretation, lab interpretation, orders, and education, excluding time spent in the performance of separately billed services. Admission and Anticipated Discharge Date Admission Date: November 16, 2024 Subjective Patient seen and examined at bedside. Patient doing well today, no concerns at this time. Awaiting results of hepatitis labs. Review of Systems Review of Systems: CONSTITUTIONAL: Patient denies fevers, chills, sweats and weight changes. EYES: Patient denies any visual symptoms. EARS, NOSE, AND THROAT: No difficulties with hearing. No symptoms of rhinitis or sore throat. CARDIOVASCULAR: Patient denies chest pains, palpitations, orthopnea and paroxy smal nocturnal dyspnea. RESPIRATORY: No dyspnea on exertion, no wheezing or cough. GI: No nausea, vomiting, diarrhea, constipation, abdominal pain, hematochezia or melena. mild jaundice : No urinary hesitancy or dribbling. No nocturia or urinary frequency. No abnormal urethral discharge. MUSCULOSKELETAL: No myalgias or arthralgias. NEUROLOGIC: No chronic headaches, no seizures. Patient denies numbness, tingling or weakness. PSYCHIATRIC: Patient denies problems with mood disturbance. No problems with anxiety. ENDOCRINE: No excessive urination or excessive thirst. Physical Exam Physical Exam: Gen: A&O 3 NAD HEENT: NCAT, EOMI, mild jaundice. External ears normal. No rhinorrhea. Moist mucous membranes. Neck: Supple, full range of motion, no observable masses, No meningeal sign. Lungs: No Respiratory distress. CV: RRR, no edema. Abdomen: Soft, nondistended, No rebound tenderness. MSK: No joint swelling, no redness. Skin: No rashes, petechiae, lesions. Normal color per patient. Neuro: Normal Gait, Grossly intact. Psych: Appropriate for situation. Results & Data Results & Data Vital Signs (Past 12 Hours) Vital Signs Temp Pulse Resp BP Pulse Ox O2 Del Method 11/19/24 08:04 36.3 C L 57 L 16 110/60 96 Room Air
[2024-11-19 17:57] LABS: Hepatitis C Vira RNA (Log) PCR <1.18 NOT DETECTED Log IU/mL (NOT DETECTED)
--- NOTE | 2024-11-20 13:19 | Hospitalist Progress Note ---
Date of Service November 20, 2024 Assessment & Plan (1) Acute liver disease: (2) Hepatitis B: (3) Pancytopenia, acquired: Plan Patient with acute liver injury, overall improving Communication with GI, awaiting follow-up/definitive results on hepatitis studies to hopefully initiate treatment. Check labs in a.m. Admission and Anticipated Discharge Date Admission Date: November 16, 2024 Subjective Patient doing well. Tolerating his diet. No abdominal pain or nausea Physical Exam Physical Exam: Constitutional: Alert HEENT: Mucous membranes moist. Lungs: Clear to auscultation, decreased, no wheezes rales or rhonchi CV: S1-S2, regular Abdomen: Soft, nontender, nondistended Extremities: No significant edema Neuro: No focal deficits Psych: Cooperative, normal mood Results & Data Results & Data Vital Signs (Past 12 Hours) Vital Signs Temp Pulse Resp BP Pulse Ox O2 Del Method 11/20/24 07:19 36.6 C 53 L 16 115/70 99 Room Air Diagnostic Findings Reviewed imaging, laboratory and diagnostic studies. Pertinent findings as below. Reviewed EMR, most recent laboratory studies from 11/18/2024 Reviewed hepatitis studies
[2024-11-20 17:36] LABS: Gamma Glutamyl Transpeptidase 87 U/L (3-95); Hepatitis A Antibody IgM NON-REACTIVE (NON-REACTIVE); Hepatitis B Core Antibody IgM NON-REACTIVE (NON-REACTIVE)
[2024-11-21 06:35] LABS: Hematocrit (blood only) 42.7 % (42.0-52.0); Hemoglobin 14.6 g/dl (14.0-18.0); Mean Corpuscular Hemoglobin 31.9 pg (25.0-34.0); Mean Corpuscular Volume 93.4 fL (80.0-100.0); Platelet Count 148 K/uL (130-400); RDW Standard Deviation 53.5 fL (36.4-46.3); Red Blood Count 4.57 M/uL (4.70-6.10); White Blood Count 4.80 K/ul (4.8-10.8)
[2024-11-21 07:14] LABS: INR 1.0 (0.9-1.1); Prothrombin Time 10.9 Seconds (9.0-12.0)
[2024-11-21 07:55] LABS: Alanine Aminotransferase 458.0 U/L (7-52); Albumin Globulin Ratio 1.1 (0.9-2); Alkaline Phosphatase 72.0 U/L (34-104); Anion Gap 7.0 (3-11); Bilirubin,Total 2.2 mg/dl (0.2-1.0); Blood Urea Nitrogen 16.0 mg/dl (6-23); Calcium 9.4 mg/dl (8.6-10.3); Carbon Dioxide 28.0 mmol/L (21-32); Chloride 103.0 mmol/L (98-107); Creatinine Clr Calc Pharmacy 97.2 ml/min; Globulin 3.5 gm/dl (2.5-4.0); Glucose 104.0 mg/dl (70-99(Fasting)); Magnesium 2.2 mg/dl (1.7-2.4); Potassium 4.5 mmol/L (3.5-5.1); Sodium 138.0 mmol/L (136-145); Total Protein 7.5 gm/dl (6.0-8.3)
[2024-11-21 08:24] VITALS: RESP 18
--- NOTE | 2024-11-21 11:22 | Gastroenterology Progress Note ---
Date of Service November 21, 2024 Assessment & Plan (1) Hepatitis B: (2) Abnormal LFTs: Plan Will plan to treat with entecavir 1mg daily. He should remain on this medication once discharged and continue with this. We discussed with the patient that the risks of leaving untreated can include HCC and/or cirrhosis. patient voiced understanding. Admission and Anticipated Discharge Date Admission Date: November 16, 2024 Subjective Patients hep B labs suggestive of reactivation. He has no GI complaints currently. LFTs have continued to improve. 11/21/24 T bili 2.2, d bili 0.9, AST 147, ALT 458, Alk 72. Review of Systems Review of Systems: All systems reviewed & are unremarkable except as noted in HPI & below Physical Exam Constitutional: WD/WN, vitals as above Respiratory: normal respiratory effort, lungs clear to auscultation Cardiovascular: Rate/Rhythm: regular rate and regular rhythm Gastrointestinal (Abdomen): normal bowel sounds, soft, nontender, no hepatosplenomegaly Psychiatric: Orientation: alert and oriented x 3 Results & Data Results & Data Vital Signs (Past 12 Hours) Vital Signs Temp Pulse Resp BP Pulse Ox O2 Del Method 11/21/24 08:23 97.5 F L 82 18 131/75 95 Room Air PG Care Time/CCT Total # of Minutes Spent Total Time Spent with Patient: Total time spent is greater than 50% in coordination of care (as documented) at patient's floor/unit and/or counseling patient: Coding Level of Care Code 19680 SUB INP/OBS CARE 2/35MIN Diagnoses Hepatitis B B19.10 Abnormal LFTs R79.89
--- NOTE | 2024-11-21 12:39 | Hospitalist Progress Note ---
Date of Service November 21, 2024 Assessment & Plan (1) Acute hepatitis B: (2) Chronic hepatitis B: (3) Pancytopenia, acquired: Plan: Improved Plan Patient 49-year-old gentleman who has laboratory evidence of acute reactivation of chronic hepatitis B infection. Bedside conversation with patient and GI, Dr. Pal. Patient will need lifelong antiviral treatment, coordinating with our pharmacy to start Entecavir 1 mg daily. Reviewed improving liver functions with patient Case management working with retirement center to determine availability of medication and their ability to order and medication Anticipate once medication available and can ensure that the patient will be able to be maintained on the medication to be discharged back to the [facility] center. Admission and Anticipated Discharge Date Admission Date: November 16, 2024 Subjective Patient is feeling well. Tolerating diet. No abdominal pain. Results & Data Results & Data Vital Signs (Past 12 Hours) Vital Signs Temp Pulse Resp BP Pulse Ox O2 Del Method 11/21/24 08:23 36.4 C L 82 18 131/75 95 Room Air Diagnostic Findings Reviewed imaging, laboratory and diagnostic studies. Pertinent findings as below. Hemoglobin 14.6 WBCs 4.8 Electrolytes stable Creatinine 0.96 Total bilirubin 2.2, improved Direct bilirubin 0.9 AST 147, improved ALT 458, improved Alk phos 72, improved Hepatitis B DNA quant log 5.1 Hepatitis B DNA 139,000 Hepatitis Be antibody reactive
[2024-11-22] MEDS ORDERED: ENTECAVIR 1 MG PO SCH
[2024-11-22 00:17] LABS: Anti Nuclear Antibody Screen NEGATIVE (NEGATIVE); Chromatin Antibody <1.0 NEG AI (<1.0 NEG); Copper, Serum 92 mcg/dL (70-175); Sm Antibody <1.0 NEG AI (<1.0 NEG)
[2024-11-22 07:04] VITALS: BP 100/63; PULSE 70; TEMP 98.1; O2SAT 100
[2024-11-22] MEDS: ENTECAVIR 1 MG PO SCH (11:28)
--- NOTE | 2024-11-22 12:54 | Discharge Summary ---
Discharge Summary Date of Service November 22, 2024 Principal Dx & Hospital Course #1 = Principal Diagnosis (1) Acute hepatitis B: (2) Chronic hepatitis B: (3) Pancytopenia, acquired: Improved Plan Patient is a 49-year-old gentleman who is currently being held at [facility] presented to the emergency room with abnormal labs most Daniel with significant abnormal LFTs. Patient really declined any specific symptoms and was not aware of anyone in his family who had hepatitis. Patient was admitted to the hospital for acute hepatitis. GI consultation was obtained. Laboratory studies for all hepatitis were sent. Initial screening was consistent with hepatitis B. More detailed testing revealed a reactivation of a chronic hepatitis B. Ultimately diagnosed with ED and negative chronic hepatitis B with reactivation. With this diagnosis it was recommended that the patient be started on Entecavir. Pharmacy ordered this and and will be able to provide him with a 1 month supply to get started for when he returns to the [facility]. It was explained to the patient that he would need to be on this medication lifelong. He is aware that he he cannot stop this medication at any time or resistance will build within the hepatitis B virus. He is also aware that if he does not take this medication he is extremely high risk for end-stage liver failure and or hepatocellular carcinoma. Day of discharge patient's vitals are signs are stable. His laboratory studies have improved. He is tolerating his diet. He can continue his care and treatment at the long-term [place]. Notes For Next Care Provider Consider following LFTs in approximately 2 weeks Patient will need to be on Entecavir lifelong Medication Changes From Visit Entecavir for Hep B Admission HPI Per Admitting Provider 49 yo male with unknown pmhx who presents from [facility] ([facility]) for abnormal labs. No medical history or admissions for this patient in medical records. Patient gave permission to d raza case with officers in room, 2 officers in room during conversation. Patient seen and examined at bedside. Patient doing well today. He states he has no symptoms at this time, no nausea, vomiting, diarrhea, SOB, chest pain, RUQ pain. He states he occasionally has had chest pain but not currently. He states he is unsure if his family members had hepatitis B. He states he does not feel any differently than he did prior. Denies IV drug use, no drug use, no alcohol use, no tobacco use, full code. Admission Exam Per Admitting Provider See H&P Discharge Exam Constitutional: Alert HEENT: Mucous membranes moist., Minimal scleral jaundice Lungs: Clear to auscultation, decreased, no wheezes rales or rhonchi CV: S1-S2, regular Abdomen: Soft, nontender, nondistended Extremities: No significant edema Neuro: No focal deficits Psych: Cooperative, normal mood Updated Medication List Medication Instructions Recorded Confirmed Type entecavir 1 mg tablet 1 mg PO DAILY #30 tabs 11/22/24 Rx Hospital Stay Data Consultations 11/16/24 11:03 ED Decision to Admit Stat 11/16/24 12:31 Consult Gastroenterology Routine Diagnostic Imagining Performed 11/16/24 08:59 US abdomen limited Stat Reviewed imaging, laboratory and diagnostic studies. Pertinent findings as below. Abdominal ultrasound remarkable WBCs 4.8 Hemoglobin 14.6 Platelets of 148 INR 1.0 Electrolytes within normal range Creatinine 0.96 Total bilirubin 2.2, improved Direct bilirubin 0.9 AST 147, improved ALT 458, improved Alk phos 72, normal range Ceruloplasmin 23 normal MRSA screen negative Serum copper 92, normal BRONSON negative Autoimmune laboratory studies negative Hepatitis B antigen positive with a reactive confirmation Hepatitis B core IgM nonreactive Hepatitis B DNA quantitative log 5.1 Hepatitis B DNA count 139,000 Hepatitis B E antibody reactive Hepatitis C negative Pending Results Patient Have Any Pending Studies at Discharge: Yes Discharge Instructions Given to Patient (Per Discharging Provider) You have chronic hepatitis B that reactivated. Highly recommend you take the prescribed medication. This medication will significantly reduce your risk for liver failure and liver cancer. If you do not take this medication there is a high chance that you will end up with liver failure or liver cancer. You will need to take this medicine lifelong Total Time Total Time Spent Total Time Spent (In Minutes): 45
[2024-11-22 21:37] LABS: Hepatitis D PCR, Qualitative NOT DETECTED
== END 2024-11-22 15:06 | DRG 442 ==
LOC: ED 08:53 → 3W 11:05 → SUATTDRO 11:05 → 3W 11:52